=== PATIENT | female | born 1975 | race Caucasian/White ===

== ENCOUNTER 2016-10-29 14:24 | Emergency (ER) | payer OTHER ==
[2016-10-29 14:38] VITALS: TEMP 97.5
[2016-10-29] MEDS ORDERED: HYDROCODONE/APAP 5/325 TAB PO ONE ×2 (15:09→15:31)
--- NOTE | 2016-10-29 15:17 | EDPHY ---
H & P Stated Complaint: Knee, ankle pain Time Seen by Provider: 10/29/16 14:59 HPI/ROS: CHIEF COMPLAINT: Right knee pain HISTORY OF PRESENT ILLNESS: The patient presents to the ED complaining of right knee pain, swelling in the mobility after she sustained a twisting injury while skiing. The patient did not strike her head or lose consciousness. She has moderate pain and swelling to her right knee. She has been unable to ambulate. The patient has no additional traumatic complaints of back pain, chest pain, abdominal pain or difficulty breathing. REVIEW OF SYSTEMS: A comprehensive 10 point review of systems is otherwise negative aside from elements mentioned in the history of present illness. Source: Patient Exam Limitations: No limitations - Personal History LMP (Females 10-55): 15-21 Days Ago Current Tetanus/Diphtheria Vaccine: Yes Current Tetanus Diphtheria and Acellular Pertussis (TDAP): Yes Tetanus Vaccine Date: 2006 - Medical/Surgical History Hx Asthma: No Hx Chronic Respiratory Disease: No Hx Diabetes: No Hx Cardiac Disease: No Hx Renal Disease: No Hx Cirrhosis: No Hx Alcoholism: No Hx HIV/AIDS: No Hx Splenectomy or Spleen Trauma: No Other PMH: PMH: endometriosis, ovarian cysts - Social History Smoking Status: Never smoked - Physical Exam Exam: General Appearance: Alert, no distress Head: Atraumatic Neck: Nontender, trachea midline Respiratory: No chest wall tender, subcutaneous air, lungs clear bilaterally Cardiovascular: Regular rate and rhythm Abdomen: Abdomen is soft and nontender, pelvis stable Skin: No lacerations, No abrasion Back: No midline T/L/S pain Extremities: Tenderness and swelling noted to the right knee, decreased range of motion secondary to pain, tenderness to palpation right medial malleolus Neurological: GCS 15, 5/5 strength noted all 4 extremities, sensation intact to light touch Constitutional: Initial Vital Signs Temperature (C) 36.4 C 10/29/16 14:34 Heart Rate 65 10/29/16 14:34 Respiratory Rate 18 10/29/16 14:34 Blood Pressure 131/81 H 10/29/16 14:34 O2 Sat (%) 100 10/29/16 14:34 O2 Delivery Mode Room Air Allergies/Adverse Reactions: acetaminophen [From Percocet] Allergy (Verified 10/25/12 17:59) Vomiting oxycodone HCl [From Percocet] Allergy (Verified 10/25/12 17:59) Vomiting Home Medications: Medication Instructions Recorded Hydrocodone/APAP 5/325 [[place] 1 - 2 each PO Q6 PRN #20 tab 10/29/16 5/325] Medical Decision Making - Diagnostics Imaging: Right Knee and Right Ankle x-rays: Images reviewed self and with radiologist 1. RIGHT KNEE (5 Views, at 3:11 p.m.): Bone mineralization is preserved. There is no acute fracture, dislocation, or suprapatellar joint effusion. There is no loose osteochondral body. On the sunrise view, there is no significant patellofemoral joint space narrowing, patellar subluxation, or tilting. If there is further clinical concern regarding the patient's knee pain , MR imaging could be considered. Impression: No acute osseous abnormality. 2. RIGHT ANKLE (3 Views, at 3:08 p.m.): Bone mineralization is preserved. There is no acute fracture or dislocation. There is no ankle joint effusion. The mortise is maintained. The talar dome is well- contoured. There is an unfused os peroneum lateral to the mid foot. The subtalar joint is normal. The base of the fifth metatarsal is unremarkable. Impression: There is no acute osseous abnormality ED Course/Re-evaluation: The patient had an IV established. She received a mg of IV Dilaudid secondary to severe pain. X-rays demonstrate no evidence of an obvious fracture. She presents to the ED clinically with a knee and ankle sprain involving her right extremity. The patient has been placed in a knee immobilizer. Patient will be discharged home with crutches. I re-evaluated the patient at 5:00 p.m.. She is comfortable. She will be discharged home and follow up with our on-call orthopedic surgeon. Differential Diagnosis: Differential diagnosis considered includes fracture, sprain, dislocation - Data Points Medications Given: Discontinued Medications Acetaminophen/Hydrocodone Bitart ([place] 5/325) 1 tab PO EDNOW ONE Stop: 10/29/16 15:10 Last Admin: 10/29/16 15:12 Dose: 1 tab Acetaminophen/Hydrocodone Bitart ([place] 5/325) 1 tab PO EDNOW ONE Stop: 10/29/16 15:32 Last Admin: 10/29/16 15:35 Dose: 1 tab Departure - Departure Disposition: Home, Routine, Self-Care Clinical Impression: Right knee sprain, Right ankle sprain Condition: Good Instructions: Knee Sprain (ED) Additional Instructions: 1. Please ice as directed 20-30 minutes at a time 4 to 5 times a day for the next 4 days. 2. Take Ibuprofen or Motrin 600 mg by mouth three times a day. 3. [place] as needed for severe pain. 4. Please schedule a follow-up appointment with the orthopedic surgeon you have been referred to for an evaluation on Tuesday. You may have additional injuries in your right knee which require additional workup with an MRI. 5. Wear knee immobilizer, use crutches as needed Referrals: Burak King MD [Medical Doctor] - As per Instructions Prescriptions: Hydrocodone/APAP 5/325 [[place] 5/325] 1 - 2 each PO Q6 PRN #20 tab PRN Reason: for pain
--- NOTE | 2016-10-29 15:33 | DX ---
Right Knee and Right Ankle Clinical History: 41-year-old female who sustained a ski accident twisting injury, and complains of p osterior right knee and ankle pain. Comparison Study: None. Findings: RIGHT KNEE (5 Views, at 3:11 p.m.): Bone mineralization is preserved. There is no acute fracture, dis location, or suprapatellar joint effusion. There is no loose osteochondral body. On the sunrise view, there is no significant patellofemoral joint space narrowing, patellar subluxation, or tilting. If t here is further clinical concern regarding the patient's knee pain, MR imaging could be considered. Impression: No acute osseous abnormality. RIGHT ANKLE (3 Views, at 3:08 p.m.): Bone mineralization is preserved. There is no acute fracture or dislocation. There is no ankle joint effusion. The mortise is maintained. The talar dome is well-cont oured. There is an unfused os peroneum lateral to the mid foot. The subtalar joint is normal. The bas e of the fifth metatarsal is unremarkable. Impression: There is no acute osseous abnormality.
[2016-10-29 17:15] VITALS: BP 125/77; PULSE 78; RESP 16; O2SAT 96
== END 2016-10-29 17:31 | disposition home or self-care (01) ==
DX: S83.91XA Sprain of unspecified site of right knee, initial encounter (principal); S93.401A Sprain of unspecified ligament of right ankle, initial encounter; X58.XXXA Exposure to other specified factors, initial encounter; Y93.23 Activity, snow (alpine) (downhill) skiing, snowboarding, sledding, tobogganing and snow tubing
CPT/HCPCS: L1830

== ENCOUNTER → 2017-05-31 | Outpatient (CLI) | payer OTHER | LOC: FIMAGING 10:03 | PROVIDERS: ATTEND Obstetrics & Gynecology | DX: Z12.31 Encounter for screening mammogram for malignant neoplasm of breast (principal) | CPT/HCPCS: G0202 ==